=== PATIENT | male | born 1970 | race Caucasian/White ===

== ENCOUNTER → 2019-09-29 | Outpatient (CLI) | payer OTHER ==
--- NOTE | 2019-09-29 13:44 | Diagnostic Imaging Report ---
MRI of the left shoulder without contrast. History: Shoulder pain. Rotator cuff tear. Decreased range of motion. Pain not responding to conservative management Comparison: None Technique: Coronal PD FS, sagital PD FS, and axial PD and PD FS. Findings: Rotator cuff: Rotator cuff tendinosis with midsubstance degeneration and small full-thickness tear involving the anterior fibers of the supraspinatus tendon at the humeral insertion site. This is best seen on coronal image 9. Minimal retraction of the torn fibers and mild supraspinatus muscle atrophy. Additionally, there is infraspinatus and subscapularis tendinosis. The teres minor tendon is intact. Osseous acromion complex: Type II acromion with mild lateral downsloping. Moderate degenerative arthrosis at the acromioclavicular joint with undersurface spurring and mild narrowing of the supraspinatus tendon outlet. Mild subacromial/subdeltoid bursitis. Glenohumeral joint: Degeneration and fraying of the labrum. The articular cartilage surfaces are thinned with fraying and fissuring. The humeral head is well-seated in the glenoid fossa. Biceps tendon: Intra-articular biceps tendinosis with fraying at the biceps anchor. Other findings: Negative for muscle denervation or osseous fracture. Impression: Rotator cuff tendinosis with midsubstance degeneration and small full-thickness tear involving the anterior fibers of the supraspinatus tendon at the humeral insertion site. Moderate degenerative arthrosis at the acromioclavicular joint with undersurface spurring and mild narrowing of the supraspinatus tendon outlet. Mild subacromial/subdeltoid bursitis. Signed by: Dr. Scott Pizano M.D. on 09/29/2019 1:40 PM
== END ==
LOC: MRI 10:42 → EDBD 10:42
PROVIDERS: ATTEND Specialist
DX: S46.092A Other injury of muscle(s) and tendon(s) of the rotator cuff of left shoulder, initial encounter (principal)

== ENCOUNTER → 2022-07-03 | Day surgery (SDC) | payer BC ==
[~2022-07-03] MED LIST: DEXAMETHASONE SOD PHOS 10 MG/1 ML VIAL ONE; DEXAMETHASONE SOD PHOS INJ 4 MG/ML SDV ONE; EPINEPHRINE 1 MG/ML 30ML VIAL ONE; FENTANYL CITRATE/PF 100MCG/2 ML INJ ONE; FISH OIL 1,0001 EAC7 PO; GLYCOPYRROLATE INJ 0.2 MG/ML VIAL ONE; HYDROCODON-ACE1 EA12 PO; LACTATED RINGER'S 1,000 ML ONE; LIDOCAINE HCL 2% LOCAL INJ 5 ML SDV VIAL INJ ONE; LISINOPRIL-HCT1 EACH PO; MULTI-VITAMIN1 EACH PO; NEOSTIGMINE 1 MG/ML 10ML VIAL ONE; ONDANSETRON HCL INJ 2MG/ML 2ML 2 MG/ML VIAL ONE; PHENYLEPHRINE HCL 1% 10 MG/ML VIAL ONE; POVIDONE IODINE 0.05% 0.05 % ML PO ONE; PROPOFOL IV EMULSION 10 MG/ML 20 ML VIAL ONE; ROCURONIUM BROMIDE 10 MG/ML 5ML VIAL IV ONE; ROPIVACAINE 0.5% 5 MG/ML 30 ML SDV ONE; SEVOFLURANE INHAL SOLN 250 ML PEN BTL ONE; SODIUM CHLORIDE 0.9% 250ML 250 ML ONE; TRICOR48 MG PO
[2022-07-03 10:17] VITALS: BP 104/75
== END | disposition home or self-care (01) ==
LOC: OR 07:16
PROVIDERS: ATTEND Specialist
DX: M75.52 Bursitis of left shoulder (principal); M77.8 Other enthesopathies, not elsewhere classified; S46.012A Strain of muscle(s) and tendon(s) of the rotator cuff of left shoulder, initial encounter; R03.0 Elevated blood-pressure reading, without diagnosis of hypertension; F17.210 Nicotine dependence, cigarettes, uncomplicated; X58.XXXA Exposure to other specified factors, initial encounter; Z01.810 Encounter for preprocedural cardiovascular examination; Z79.899 Other long term (current) drug therapy
CPT/HCPCS: 29822; 93005; J0690; J1100; J2795; J3010; J7050; J7121; J2001; J2370; J2405; J2710

== ENCOUNTER 2022-07-25 13:40 | Outpatient (RCR) | payer BC ==
[~2022-07-25 13:40] MED LIST changes: -DEXAMETHASONE SOD PHOS 10 MG/1 ML VIAL ONE; -DEXAMETHASONE SOD PHOS INJ 4 MG/ML SDV ONE; -EPINEPHRINE 1 MG/ML 30ML VIAL ONE; -FENTANYL CITRATE/PF 100MCG/2 ML INJ ONE; -GLYCOPYRROLATE INJ 0.2 MG/ML VIAL ONE; -LACTATED RINGER'S 1,000 ML ONE; -LIDOCAINE HCL 2% LOCAL INJ 5 ML SDV VIAL INJ ONE; -NEOSTIGMINE 1 MG/ML 10ML VIAL ONE; -ONDANSETRON HCL INJ 2MG/ML 2ML 2 MG/ML VIAL ONE; -PHENYLEPHRINE HCL 1% 10 MG/ML VIAL ONE; -POVIDONE IODINE 0.05% 0.05 % ML PO ONE; -PROPOFOL IV EMULSION 10 MG/ML 20 ML VIAL ONE; -ROCURONIUM BROMIDE 10 MG/ML 5ML VIAL IV ONE; -ROPIVACAINE 0.5% 5 MG/ML 30 ML SDV ONE; -SEVOFLURANE INHAL SOLN 250 ML PEN BTL ONE; -SODIUM CHLORIDE 0.9% 250ML 250 ML ONE
== END 2022-08-02 ==
LOC: PT 13:40
PROVIDERS: ATTEND Physician Assistant
DX: M75.42 Impingement syndrome of left shoulder (principal)

== ENCOUNTER → 2022-09-01 | Outpatient (RCR) | payer BC | LOC: PT 08-03 07:23 | PROVIDERS: ATTEND Physician Assistant | DX: M75.42 Impingement syndrome of left shoulder (principal) ==

== ENCOUNTER 2023-11-29 13:56 | Outpatient (RCR) | payer BC | END 2023-12-03 | LOC: PT 13:56 | PROVIDERS: ATTEND Physician Assistant | DX: M75.41 Impingement syndrome of right shoulder (principal); M75.81 Other shoulder lesions, right shoulder; M25.511 Pain in right shoulder; M25.611 Stiffness of right shoulder, not elsewhere classified; M62.81 Muscle weakness (generalized) ==

== ENCOUNTER 2023-12-27 13:53 | Outpatient (RCR) | payer BC | END 2024-01-03 | LOC: PT 13:53 | PROVIDERS: ATTEND Physician Assistant | DX: M75.41 Impingement syndrome of right shoulder (principal); M75.81 Other shoulder lesions, right shoulder; M25.611 Stiffness of right shoulder, not elsewhere classified; M62.81 Muscle weakness (generalized) ==